=== PATIENT | male | born 1985 | race Caucasian/White ===

== ENCOUNTER 2017-09-16 19:07 | Emergency (ER) | payer OTHER, MEDICARE ==
[~2017-09-16] VITALS: Ht 177.8 cm; Wt 112.5 kg
--- NOTE | 2017-09-16 19:14 | ED.ADGEN ---
Past History Past Medical History: Other Adult General Chief Complaint Chief Complaint ".. It was west of the last few delivery of the day... "I work for [employer]... and it was a heavy car part or something in a box... I was getting it to take up a hill.. and I felt something pull and I also fell scratching up my arms... it was about 5... and end of my shift so I did not make my work report..but I ve been hurting more... especially if I have been sitting down for a few minutes ... I can't get up...and I got the bruise and big muscle spasm her on the rt. ( lower lumbar).." HPI HPI Patient is a 31 year old male who presents with above hx and complaints right lower lumbar muscle spasm and sciatica down right leg. Patient also has abrasions to forearms. Patient patient had the shot was approximately 1 year ago. Patient notes that straight leg lift on right exacerbates his sciatica. No history immunosuppression. No history of fever or chills. No history of IV drug use. No history of cancer. No problems with defecation or urination. Review of Systems Review of Systems Constitutional: Denies fever or chills [] Eyes: Denies change in visual acuity, redness, or eye pain [] HENT: Denies nasal congestion or sore throat [] Respiratory: Denies cough or shortness of breath [] Cardiovascular: No additional information not addressed in HPI [] GI: Denies abdominal pain, nausea, vomiting, bloody stools or diarrhea [] : Denies dysuria or hematuria [] Musculoskeletal: Right lumbar back pain . Integument: Denies rash or skin lesions [complaints]abrasions to forearms Neurologic: Denies headache, focal weakness or sensory changes [] Endocrine: Denies polyuria or polydipsia [] All other systems were reviewed and found to be within normal limits, except as documented in this note. Family History Family History Noncontributory Current Medications Current Medications Current Medications Medications (Trade) Dose Ordered Sig/Gordon Start Time Stop Time Status Last Admin Dose Admin Ketorolac Tromethamine (Toradol) 60 mg 1X ONCE 09/16/17 19:45 09/16/17 19:46 DC 09/16/17 19:56 60 MG Methylprednisolone Acetate (DEPO-Medrol IM) 40 mg 1X ONCE 09/16/17 19:45 09/16/17 19:46 DC 09/16/17 19:56 40 MG Morphine Sulfate (Morphine 10mg Syringe) 10 mg 1X ONCE 09/16/17 19:45 09/16/17 19:46 DC 09/16/17 19:55 10 MG Orphenadrine Citrate (Norflex) 60 mg 1X ONCE 09/16/17 19:45 09/16/17 19:46 DC 09/16/17 19:55 60 MG Allergies Allergies Allergies Coded Allergies Type Severity Reaction Last Updated Verified No Known Drug Allergies 09/16/17 No Physical Exam Physical Exam Constitutional: Moderately acute distress, non-toxic appearance. [] HENT: Normocephalic, atraumatic, bilateral external ears normal, oropharynx moist, no oral exudates, nose normal. [] Eyes: PERRLA, EOMI, conjunctiva normal, no discharge. [] Neck: Normal range of motion, no tenderness, supple, no stridor. [] Cardiovascular:Heart rate regular rhythm, no murmur [] Lungs & Thorax: Bilateral breath sounds equal apex with scattered wheezes on auscultation [] Abdomen: Bowel sounds normal, soft, no tenderness, no masses, no pulsatile masses. Obese. Normal cremaster reflex. No reported saddle loss. Skin: Warm, dry, no erythema, no rash. Abrasion to forearms. Multiple tattoos. Back: Rt. Lumbar muscle spasm, ecchymosis, tenderness, no CVA tenderness. [] Extremities: No tenderness, no cyanosis, no clubbing, ROM intact, no edema. [] Straight leg lift on Rt. exacerbates his sciatic complaints. Neurologic: Alert and oriented X 3, normal motor function, normal sensory function, no focal deficits noted. []DTR + 2 patella and Achilles Psychologic: Affect normal, judgement normal, mood normal. [] Current Patient Data Vital Signs Vital Signs Date Time Temp Pulse Resp B/P (MAP) Pulse Ox O2 Delivery O2 Flow Rate FiO2 09/16/17 21:00 72 20 133/73 (93) 98 Room Air 09/16/17 19:10 98.3 EKG EKG [] Radiology/Procedures Radiology/Procedures My interpretation CT of back shows no obvious fracture dislocation. See formal report when available[] Course & Med Decision Making Course & Med Decision Making Pertinent Labs and Imaging studies reviewed. (See chart for details) Must follow up with Work comp. Take tylenol and ibuprofen for pain. Ice packs. Marked pain and spasm take Vicoprofen and Flexeril. Do not take the meds if driving, they can cause sedation. Return if any concerns. Avoid constipation. Must follow up. Polysporin 4 x day to abrasions until healed. [] Final Impression Final Impression 1. Abrasions 2. Lumbar muscle strain 3. Sciatica[] 4. Contusions Problems: Dragon Disclaimer Dragon Disclaimer This electronic medical record was generated, in whole or in part, using a voice recognition dictation system. ALISSA GOODEN MD Sep 16, 2017 19:14
[2017-09-16] MEDS ORDERED: ORPHENADRINE CITRATE 60 MG/2 ML VIAL. IM ONE (19:45)
[2017-09-16] MEDS ORDERED: methylPREDNISolone ACETATE 40 MG/ML VIAL. IM ONE (19:45)
[2017-09-16] MEDS ORDERED: MORPHINE SULFATE 10 MG/ML SYRINGE. SQ ONE (19:45)
[2017-09-16] MEDS ORDERED: KETOROLAC 60 MG/2 ML VIAL. IM ONE (19:45)
[2017-09-16] MEDS ORDERED: CYCL-331 PO (19:57)
[2017-09-16] MEDS ORDERED: HYDR-79 PO (19:57)
--- NOTE | 2017-09-16 20:35 | RAD ---
CT lumbar spine without contrast 09/16/2017 Clinical indication: Severe pain in the low back radiating to the right leg. COMPARISON: None. TECHNIQUE: Multiple CT images of the lumbar spine were obtained without contrast according to standard protocol. There are 5 nonrib-bearing lumbar-type vertebral bodies with the 1st considered L1. There is straightening of the lumbar spine which may be positional or due to muscle spasm. Grade 1 retrolisthesis L throughout L4, L4-L5 and L5 on S1 measuring 0.2 cm. Vertebral body heights are maintained. The disc spaces are preserved. The paraspinal soft tissues are unremarkable. No significant spinal canal or neural foraminal narrowing from T12-L1 through L4-L5. At L5-S1, grade 1 retrolisthesis, concentric disc bulging resulting in mild bilateral neural foraminal narrowing with no significant spinal canal narrowing. IMPRESSION: 1. No acute lumbar spine fracture or traumatic malalignment. 2. Multilevel grade 1 retrolisthesis L3 on L4-L5 on S1. 3. Degenerative mild bilateral neural foraminal narrowing at L5-S1. 4. No significant spinal canal narrowing. Electronically signed by: Tab Ruiz MD (09/16/2017 8:32 PM) [facility]
[2017-09-16 21:00] VITALS: BP 133/73
== END 2017-09-16 21:06 | disposition home or self-care (01) ==
LOC: ER 19:07
DX: S39.012A Strain of muscle, fascia and tendon of lower back, initial encounter (principal); M54.41 Lumbago with sciatica, right side; S50.812A Abrasion of left forearm, initial encounter; S50.811A Abrasion of right forearm, initial encounter; W19.XXXA Unspecified fall, initial encounter; Y93.89 Activity, other specified; Y99.8 Other external cause status; Y92.828 Other wilderness area as the place of occurrence of the external cause
CPT/HCPCS: 72131; 96372; 99284; J1030; J1885; J2270; J2360

== ENCOUNTER 2017-10-28 18:55 | Emergency (ER) | payer MEDICARE, OTHER ==
[~2017-10-28] VITALS: Ht 177.8 cm; Wt 113.4 kg
[~2017-10-28 18:55] MED LIST: CYCL-331 PO; HYDR-79 PO
--- NOTE | 2017-10-28 19:19 | ED.ADGEN ---
Past History Past Medical History: Other Past Surgical History: Other Alcohol Use: None Drug Use: None Adult General Chief Complaint Chief Complaint ".. This Rt. knee is hurting again.. I hurt it four months ago..." HPI HPI Patient is a 31 year old male who presents with above hx. and complaints of Rt. knee pain. Pt. had previous injury to knee. Did not keep follow up with orthro. No new specific hx of injury. Pain appears to be localized around the patella. There is some mild edema. No findings of inflammation . Patient is ambulatory without problem. Pain is increased with flexion. Patient can do straight leg lift. There is no appreciable crepitation or click.. Ligaments both collateral, anterior cruciate and posterior cruciate grossly intact. Return of pain has been present since yesterday.. No history of fevers. No history of immunosuppression. No history of urinary dysuria or infection. Patient is normally healthy.. Review of Systems Review of Systems Constitutional: Denies fever or chills [] Eyes: Denies change in visual acuity, redness, or eye pain [] HENT: Denies nasal congestion or sore throat [] Respiratory: Denies cough or shortness of breath [] Cardiovascular: No additional information not addressed in HPI [] GI: Denies abdominal pain, nausea, vomiting, bloody stools or diarrhea [] : Denies dysuria or hematuria [] Musculoskeletal: Denies back pain or joint pain [] Integument: Denies rash or skin lesions [] Neurologic: Denies headache, focal weakness or sensory changes [] Endocrine: Denies polyuria or polydipsia [] All other systems were reviewed and found to be within normal limits, except as documented in this note. Family History Family History Noncontributory Current Medications Current Medications Current Medications Medications (Trade) Dose Ordered Sig/Gordon Start Time Stop Time Status Last Admin Dose Admin Ketorolac Tromethamine (Toradol) 60 mg 1X ONCE 10/28/17 19:45 10/28/17 19:46 DC 10/28/17 19:32 60 MG See nursing for home medications Allergies Allergies Allergies Coded Allergies Type Severity Reaction Last Updated Verified No Known Drug Allergies 09/16/17 No Physical Exam Physical Exam Constitutional: In moderate distress, non-toxic appearance. [] HENT: Normocephalic, atraumatic, bilateral external ears normal, oropharynx moist, no oral exudates, nose normal. [] Eyes: PERRLA, EOMI, conjunctiva normal, no discharge. [] Neck: Normal range of motion, no tenderness, supple, no stridor. [] Cardiovascular:Heart rate regular rhythm, no murmur [] Lungs & Thorax: Bilateral breath sounds clear to auscultation [] Abdomen: Bowel sounds normal, soft, no tenderness, no masses, no pulsatile masses. [] Obese Skin: Warm, dry, no erythema, no rash. [] Back: No tenderness, no CVA tenderness. [] Extremities: No tenderness, no cyanosis, no clubbing, ROM intact, no edema. [] Right knee exam as per history of present illness Neurologic: Alert and oriented X 3, normal motor function, normal sensory function, no focal deficits noted. [] Psychologic: Affect anxious, judgement normal, mood normal. [] Current Patient Data Vital Signs Vital Signs Date Time Temp Pulse Resp B/P (MAP) Pulse Ox O2 Delivery O2 Flow Rate FiO2 10/28/17 21:32 88 20 104/48 (66) 94 10/28/17 18:56 97.8 Room Air EKG EKG [] Radiology/Procedures Radiology/Procedures My interpretation of right knee x-ray showed no obvious fracture dislocation.[] Course & Med Decision Making Course & Med Decision Making Pertinent Labs and Imaging studies reviewed. (See chart for details). Take Tylenol and ibuprofen for pain.. Use Azeem wrap. Follow-up primary care. Follow- up or thrill. For marked pain may take Vicoprofen 4 times a day. If persistent pain may need arthroscopic evaluation. Return if any concerns. [] Final Impression Final Impression 1. Rt. Knee Pain[] Problems: Dragon Disclaimer Dragon Disclaimer This electronic medical record was generated, in whole or in part, using a voice recognition dictation system. ALISSA GOODEN MD Oct 28, 2017 19:19
[2017-10-28] MEDS ORDERED: KETOROLAC 60 MG/2 ML VIAL. IM ONE (19:45)
[2017-10-28 21:32] VITALS: BP 104/48
--- NOTE | 2017-10-29 07:43 | RAD ---
3 views right knee 10/28/2017 9:20 PM Indication: pain Comparison: None Findings: There is no fracture or dislocation identified. Articular surfaces are uninterrupted. Soft tissues are unremarkable. Impression: No evidence of acute osseous abnormality
== END 2017-10-28 21:32 | disposition home or self-care (01) ==
LOC: ER 18:55
DX: M25.561 Pain in right knee (principal); R60.1 Generalized edema
CPT/HCPCS: 73564; 96372; 99284; J1885

== ENCOUNTER 2018-01-25 20:15 | Emergency (ER) | payer MEDICARE ==
[~2018-01-25] VITALS: Ht 177.8 cm; Wt 104.3 kg
--- NOTE | 2018-01-25 20:22 | ED.ADGEN ---
Past History Past Medical History: Other Past Surgical History: Other Alcohol Use: None Drug Use: None Adult General Chief Complaint Chief Complaint ".. I got a really bad... tooth ache... I think it got infected..." HPI HPI Patient is a 32 year old male who presents with above hx and dental pain complaints. Patient's to #32 is fractured and has decay with surrounding inflammation abdominal. Does have adenopathy at ankle of right mandible. Patient has no trismus. No history immunosuppression. Has other areas of decay and mouth. Patient has not as yet follow-up with a dentist. Patient rates his pain as 10 out of 10. There is no pointing abscess. But obvious inflammation and edema of right mandible. Review of Systems Review of Systems Constitutional: Denies fever or chills [] Eyes: Denies change in visual acuity, redness, or eye pain [] HENT: Denies nasal congestion or sore throat []complaints of dental pain Respiratory: Denies cough or shortness of breath [] Cardiovascular: No additional information not addressed in HPI [] GI: Denies abdominal pain, nausea, vomiting, bloody stools or diarrhea [] : Denies dysuria or hematuria [] Musculoskeletal: Denies back pain or joint pain [] Integument: Denies rash or skin lesions [] Neurologic: Denies headache, focal weakness or sensory changes [] Endocrine: Denies polyuria or polydipsia [] All other systems were reviewed and found to be within normal limits, except as documented in this note. Family History Family History Noncontributory Current Medications Current Medications Current Medications Medications (Trade) Dose Ordered Sig/Gordon Start Time Stop Time Status Last Admin Dose Admin Ceftriaxone Sodium (Rocephin Im) 1 gm 1X ONCE 01/25/18 21:15 01/25/18 21:18 DC 01/25/18 21:29 1 GM Ketorolac Tromethamine (Toradol Im) 60 mg 1X ONCE 01/25/18 21:15 01/25/18 21:18 DC 01/25/18 21:29 60 MG Oxycodone/ Acetaminophen (Percocet 10/325) 1 tab 1X ONCE 01/25/18 21:15 01/25/18 21:18 DC 01/25/18 21:30 1 TAB Allergies Allergies Allergies Coded Allergies Type Severity Reaction Last Updated Verified No Known Drug Allergies 09/16/17 No Physical Exam Physical Exam Constitutional: Well developed, well nourished, in acute distress, non-toxic appearance. [] HENT: Normocephalic, atraumatic, bilateral external ears normal, oropharynx moist, no oral exudates, nose normal. []Dental findings as per history of present illness Eyes: PERRLA, EOMI, conjunctiva normal, no discharge. [] Neck: Normal range of motion, no tenderness, supple, no stridor. [] Cardiovascular:Heart rate regular rhythm, no murmur [] Lungs & Thorax: Bilateral breath sounds equal at apex with few scattered wheezes on auscultation [] Abdomen: Bowel sounds normal, soft, no tenderness, no masses, no pulsatile masses. [] Skin: Warm, dry, no erythema, no rash. [] Multiple tattoos. Back: No tenderness, no CVA tenderness. [] Extremities: No tenderness, no cyanosis, no clubbing, ROM intact, no edema. [] Neurologic: Alert and oriented X 3, normal motor function, normal sensory function, no focal deficits noted. [] Psychologic: Affect anxious l, judgement normal, mood normal. [] Current Patient Data Vital Signs Vital Signs Date Time Temp Pulse Resp B/P (MAP) Pulse Ox O2 Delivery O2 Flow Rate FiO2 01/25/18 22:19 98.0 76 20 97 Room Air EKG EKG [] Radiology/Procedures Radiology/Procedures [] Course & Med Decision Making Course & Med Decision Making Pertinent Labs and Imaging studies reviewed. (See chart for details). Take Keflex 500 mg 3 times a day. Take Tylenol and ibuprofen for pain. For marked pain may take Vicoprofen up to 4 times a day. Must follow-up with a dentist. [] Final Impression Final Impression 1. Dental Pain[]-32 2. Suspect dental abscess Dragon Disclaimer Dragon Disclaimer This electronic medical record was generated, in whole or in part, using a voice recognition dictation system. ALISSA GOODEN MD Jan 25, 2018 20:22
[2018-01-25] MEDS ORDERED: cefTRIAXone IM 1 GM VIAL IM ONE (21:15)
[2018-01-25] MEDS ORDERED: KETOROLAC 60 MG/2 ML VIAL. IM ONE (21:15)
[2018-01-25] MEDS ORDERED: oxyCODONE/APAP 10/325 1 TAB TABLET PO ONE (21:15)
[2018-01-25] MEDS ORDERED: CEPH-264 PO (21:19)
[2018-01-25] MEDS ORDERED: HYDR-79 PO (21:19)
[2018-01-25 22:19] VITALS: BP 146/90
== END 2018-01-25 22:05 | disposition home or self-care (01) ==
LOC: ER 20:15
DX: K08.89 Other specified disorders of teeth and supporting structures (principal)
CPT/HCPCS: 96372; 99284; J0696; J1885

== ENCOUNTER 2018-04-16 16:45 | Emergency (ER) | payer MEDICARE ==
[~2018-04-16] VITALS: Ht 177.8 cm; Wt 115.7 kg
[~2018-04-16 16:45] MED LIST changes: +CEPH-264 PO
[2018-04-16] MEDS ORDERED: CYCLOBENZAPRINE 10 MG TABLET. PO ONE (17:45)
[2018-04-16] MEDS ORDERED: NAPROXEN 500 MG TABLET PO ONE (17:45)
[2018-04-16] MEDS ORDERED: METH4TAB2 PO (17:52)
[2018-04-16] MEDS ORDERED: CYCL-331 PO (17:52)
[2018-04-16] MEDS ORDERED: NAPR-683 PO (17:52)
--- NOTE | 2018-04-16 17:52 | PHYS DOC ---
Past History Past Medical History: No Pertinent History Past Surgical History: No Surgical History Smoking: Cigarettes Alcohol Use: None Drug Use: None Adult General Chief Complaint Chief Complaint: back pain HPI HPI Patient is a 32 year old male who presents with obtaining of low back pain after lifting weights at work today as a constant pain with radiation to left thigh after constant pain that getting worse with movement. Patient denies focal neurodeficit and urinary and bowel incontinence and fever and chills. Patient did not take any pain medication and rated his pain 10 over 10. Review of Systems Review of Systems Constitutional: Denies fever or chills [] Eyes: Denies change in visual acuity, redness, or eye pain [] HENT: Denies nasal congestion or sore throat [] Respiratory: Denies cough or shortness of breath [] Cardiovascular: No additional information not addressed in HPI [] GI: Denies abdominal pain, nausea, vomiting, bloody stools or diarrhea [] : Denies dysuria or hematuria [] Musculoskeletal: Reports back pain or joint pain Integument: Denies rash or skin lesions [] Neurologic: Denies headache, focal weakness or sensory changes [] Endocrine: Denies polyuria or polydipsia [] All other systems were reviewed and found to be within normal limits, except as documented in this note. Current Medications Current Medications Current Medications Medications (Trade) Dose Ordered Sig/Gordon Start Time Stop Time Status Last Admin Dose Admin Cyclobenzaprine HCl (Flexeril) 10 mg 1X ONCE 04/16/18 17:45 04/16/18 17:46 Naproxen (Naprosyn) 500 mg 1X ONCE 04/16/18 17:45 04/16/18 17:46 Allergies Allergies Allergies Coded Allergies Type Severity Reaction Last Updated Verified No Known Drug Allergies 09/16/17 No Physical Exam Physical Exam Constitutional: Well developed, well nourished, mild distress, non-toxic appearance. [] HENT: Normocephalic, atraumatic Eyes: PERRLA, EOMI, conjunctiva normal, no discharge. [] Neck: Normal range of motion, no tenderness, supple, no stridor. [] Cardiovascular:Heart rate regular rhythm, no murmur [] Lungs & Thorax: Bilateral breath sounds clear to auscultation [] Abdomen: Bowel sounds normal, soft, no tenderness, no masses, no pulsatile masses. [] Skin: Warm, dry, no erythema, no rash. [] Back: No midline tenderness, paraspinal muscle spasm with painful range of motion no CVA tenderness. [] Extremities: No tenderness, no cyanosis, no clubbing, ROM intact, no edema. [] Neurologic: Alert and oriented X 3, normal motor function, normal sensory function, no focal deficits noted. [] Psychologic: Affect normal, judgement normal, mood normal. [] Current Patient Data Vital Signs Vital Signs Date Time Temp Pulse Resp B/P (MAP) Pulse Ox O2 Delivery O2 Flow Rate FiO2 04/16/18 16:55 98.4 89 18 98 Room Air EKG EKG [] Radiology/Procedures Radiology/Procedures [] Course & Med Decision Making Course & Med Decision Making discharge: I've spoken with the patient and/or caregivers. I've explained the patient's condition, diagnosis and treatment plan based on information available to me at this time. I've answered the patient's and/or caregivers questions and addressed any concerns. The patient and/or caregivers have a good understanding the patient's diagnosis, condition and treatment plan as can be expected at this point. Vital signs have been stabilized. The patient's condition is stable for discharge from the emergency department. The patient will pursue further outpatient evaluation with her primary care provider or other designated consulting physician as outlined in the discharge instructions. Patient and/or caregivers are agreeable to this plan of care and follow-up instructions have been explained in detail. The patient and/or caregivers have received these instructions in written format and expressed understanding of these discharge instructions. The patient and her caregivers are aware that if any significant change in condition or worsening of symptoms should prompt him to immediately return to this of the closest emergency department. If an emergent department is not readily available I would encourage him to call 911. Leonor Disclaimer Leonor Disclaimer This electronic medical record was generated, in whole or in part, using a voice recognition dictation system. Departure Departure: Impression: Primary Impression: Lumbosacral strain Additional Impression: Tobacco abuse counseling Disposition: HOME, SELF-CARE (at 1800) Condition: STABLE Referrals: PCP,NO (PCP) Patient Instructions: Lumbosacral Strain, Smoking Cessation, Smoking Cessation , Tips For Success Additional Instructions: Apply ice on your back Follow-up with your primary care physician in 3-5 days Return to ER if not getting better Scripts Naproxen (NAPROSYN) 500 Mg Tablet 1 TAB PO BID, #20 TAB Prov: GALI STEVENS MD 04/16/18 Methylprednisolone (MEDROL) 4 Mg Tab.ds.pk 1 PKG PO UD, #1 PKG Prov: GALI STEVENS MD 04/16/18 Cyclobenzaprine Hcl (CYCLOBENZAPRINE HCL) 10 Mg Tablet 1 TAB PO TID, #30 TAB Prov: GALI STEVENS MD 04/16/18 Problem Qualifiers GALI STEVENS MD Apr 16, 2018 17:52
[2018-04-16 18:00] VITALS: BP 108/54
== END 2018-04-16 18:00 | disposition home or self-care (01) ==
LOC: ER 16:45
DX: S39.012A Strain of muscle, fascia and tendon of lower back, initial encounter (principal); F17.210 Nicotine dependence, cigarettes, uncomplicated; Z71.6 Tobacco abuse counseling; X50.0XXA Overexertion from strenuous movement or load, initial encounter; Y93.89 Activity, other specified; Y92.89 Other specified places as the place of occurrence of the external cause; Y99.8 Other external cause status
CPT/HCPCS: 99283